=== PATIENT | female | born 1960 | race Caucasian/White ===

== ENCOUNTER 2019-01-07 20:01 | Emergency (ER) | payer BC ==
[~2019-01-07] VITALS: Ht 162.6 cm; Wt 81.7 kg
[~2019-01-07 20:01] MED LIST: ASPIRIN81 M2 PO; CELEXA40 MG PO; GLUCOPHAGE500 MG PO; HYDROCHLOROTHIA25 M1 PO; IBUPROFEN 600600 M1; MIRALAX255 GM PO; NORCO 5-325 TA1 EACH PO; QUINAPRIL 20 MG20 MG PO; ZOFRAN ODT4 MG PO
[2019-01-07] MEDS ORDERED: NICOTINE TRANSD14 M1 TRANSDERM (22:23)
[2019-01-07 22:30] VITALS: BP 170/100
== END 2019-01-07 22:30 | disposition home or self-care (01) ==
LOC: ER 20:01
DX: R06.09 Other forms of dyspnea (principal); R13.10 Dysphagia, unspecified; I10 Essential (primary) hypertension; E11.9 Type 2 diabetes mellitus without complications; F32.9 Major depressive disorder, single episode, unspecified; F41.9 Anxiety disorder, unspecified; F17.210 Nicotine dependence, cigarettes, uncomplicated; Z90.89 Acquired absence of other organs; Z98.890 Other specified postprocedural states; Z87.442 Personal history of urinary calculi; Z88.1 Allergy status to other antibiotic agents; Z88.0 Allergy status to penicillin; Z88.2 Allergy status to sulfonamides

== ENCOUNTER 2020-02-25 16:58 | Emergency (ER) | payer OTHER ==
[~2020-02-25] VITALS: Ht 165.1 cm; Wt 99.8 kg
[~2020-02-25 16:58] MED LIST changes: -IBUPROFEN 600600 M1; +IBUPROFEN 600600 M1 PO; +LIPITOR 20 MG T20 M1 PO; +NEURONTIN 300300 M1 PO; +NICOTINE TRANSD14 M1 TRANSDERM
[2020-02-25 18:40] LABS: URINE BILIRUBIN 1+ (Negative); URINE BLOOD NEGATIVE (Negative); URINE CLARITY CLEAR; URINE COLOR YELLOW; URINE GLUCOSE-RANDOM* NEGATIVE (Negative); URINE KETONES NEGATIVE (Negative); URINE LEUKOCYTES-REFLEX 1+ (Negative); URINE NITRITE-REFLEX NEGATIVE (Negative); URINE PROTEIN (DIPSTICK) 1+ (Negative); URINE SPECIFIC GRAVITY 1.025 (1.005-1.035)
[2020-02-25 18:41] LABS: ICTOTEST (BILI CONFIRMATORY) Negative (Negative)
[2020-02-25 18:47] LABS: SQUAMOUS >10 Many /LPF (0-3)
[2020-02-25 18:48] LABS: BACTERIA-REFLEX >30 Many /HPF (None Seen); CASTS None Seen /LPF (None Seen); CRYSTALS None Seen /LPF (None Seen); URINE RBC 0-2 Rare /HPF (0-2)
[2020-02-25] MEDS ORDERED: MACROBID 100 M100 MG PO (18:58)
[2020-02-25 19:23] VITALS: BP 138/56
== END 2020-02-25 19:23 | disposition home or self-care (01) ==
LOC: ER 16:58
PROVIDERS: Emergency Medicine
DX: N39.0 Urinary tract infection, site not specified (principal); I10 Essential (primary) hypertension; E11.9 Type 2 diabetes mellitus without complications; E78.5 Hyperlipidemia, unspecified; F17.210 Nicotine dependence, cigarettes, uncomplicated; Z79.899 Other long term (current) drug therapy; Z88.0 Allergy status to penicillin; Z88.1 Allergy status to other antibiotic agents; Z88.2 Allergy status to sulfonamides; Z91.048 Other nonmedicinal substance allergy status